=== PATIENT | male | born 1940 | race Caucasian/White ===

== ENCOUNTER 2021-02-06 17:25 | Inpatient (IN) | payer MEDICARE, OTHER ==
[~2021-02-06] VITALS: Ht 177.8 cm; Wt 84.9 kg
[2021-02-06 19:14] LABS: Basophils # (auto) 0 10 ^3/uL (0-0.2); Basophils % (auto) 0.4 % (0.0-2.0); Eosinophils # (auto) 0.1 10 ^3/uL (0-0.8); Eosinophils % (auto) 1.8 % (0.0-7.0); Hematocrit 38.2 % (41.0-53.0); Hemoglobin 12.9 g/dL (13.5-17.5); Lymphocytes # (auto) 2.6 10 ^3/uL (0.4-5.4); Lymphocytes % (auto) 39.4 % (10.0-50.0); Mean Corpuscular Hemoglobin 31.9 pg (28.0-32.0); Mean Corpuscular Hgb Conc. 33.8 g/dL (32.0-36.0); Mean Corpuscular Volume 94.5 fL (80.0-100.0); Monocytes # (auto) 0.8 10 ^3/uL (0-1.3); Monocytes % (auto) 12.4 % (0.0-12.0); Neutrophils # (auto) 3.1 10 ^3/uL (1.6-8.6); Red Blood Cells 4.04 10^6/uL (4.5-5.90); Red Cell Distribution Width 15.1 % (11.8-14.3); White Blood Cell 6.7 10^3/uL (4.4-10.8)
[2021-02-06 19:26] LABS: Albumin 3.7 g/dL (3.4-5.0); Anion Gap 5 (5-15); Blood Urea Nitrogen 40 mg/dL (7-18); Calcium 8.6 mg/dL (8.5-10.1); Carbon Dioxide 30 mmol/L (21-32); Chloride 104 mmol/L (98-107); Glucose 158 mg/dL (74-106); Potassium 4.6 mmol/L (3.5-5.1); Sodium 139 mmol/L (136-145)
[2021-02-06 19:32] LABS: Alanine Aminotransferase 50 U/L (16-61); Alkaline Phosphatase 145 U/L (45-117); Aspartate Aminotransferase 33 U/L (15-37); BUN/Creatinine Ratio 22.1; Bilirubin, Total 0.3 mg/dL (0.2-1.0); GFR African American 47 mL/min; GFR Non-African American 39 mL/min; Total Protein 7.8 g/dL (6.4-8.2)
[2021-02-07] MEDS ORDERED: ONDANSETRON HCL 4 MG/2 ML VIAL IV PRN (01:15)
[2021-02-07] MEDS ORDERED: NITROGLYCERIN 0.4 MG SL TAB SL PRN (01:15)
[2021-02-07] MEDS ORDERED: cloNIDine HCL 0.1 MG TAB PO PRN (01:15)
[2021-02-07] MEDS ORDERED: ACETAMINOPHEN 325 MG TAB PO PRN (01:15)
[2021-02-07] MEDS ORDERED: MORPHINE SULFATE INJECTION 2 MG/ML SYRG IV PRN (01:15)
[2021-02-07] MEDS: GABAPENTIN 300 MG CAP PO SCH ×2 (07:02→21:47)
[2021-02-07] MEDS ORDERED: METH4PAK3 PO (09:49)
[2021-02-07] MEDS: ASPirin 81 mg TAB PO SCH (10:14)
[2021-02-07] MEDS: amLODIPine BESYLATE 5 MG TAB PO SCH (10:15)
[2021-02-07] MEDS: PANTOPRAZOLE 40 MG TAB PO SCH (10:16)
[2021-02-07] MEDS ORDERED: DEXTROSE (50%) 50ML SYRG IV PRN (10:45)
[2021-02-07] MEDS: ACCU-CHEK COMFORT CURVE STRIP VI SCH ×3 (11:29→21:48)
[2021-02-07] MEDS: InsuLIN REG 1unit/0.01ml Soln (100units/ml) SC SCH ×3 (11:29→22:20)
[2021-02-07 17:00] VITALS: BP 121/69
[2021-02-07] MEDS ORDERED: DULO60CA PO (19:19)
[2021-02-07] MEDS ORDERED: PANT1INJ3 PO (19:19)
[2021-02-07] MEDS ORDERED: ATOR80TA PO (19:19)
[2021-02-07] MEDS ORDERED: PRIM50TA5 GT (19:19)
[2021-02-07] MEDS ORDERED: ASPI-543 PO (19:19)
[2021-02-07] MEDS ORDERED: LISI-275 PO (19:19)
[2021-02-07] MEDS ORDERED: BACL10TA PO (19:19)
[2021-02-07] MEDS ORDERED: TAMS1CAP25 PO (19:19)
[2021-02-07] MEDS ORDERED: FURO40TA4 PO (19:19)
[2021-02-07] MEDS ORDERED: CLOP75TA70 PO (19:19)
[2021-02-07] MEDS ORDERED: METO25TA93 PO (19:19)
[2021-02-07] MEDS ORDERED: FINA5TAB4 PO (19:19)
[2021-02-07] MEDS ORDERED: LEVEMIR SC (19:19)
[2021-02-07] MEDS ORDERED: GABA300C10 PO (19:19)
[2021-02-07 21:30] VITALS: BP 148/80
[2021-02-07] MEDS: ATORVASTATIN 20 MG TAB PO SCH (21:48)
[2021-02-07] MEDS ORDERED: ATORVASTATIN 20 MG TAB PO SCH (22:00)
[2021-02-08 05:27] LABS: Basophils # (auto) 0 10 ^3/uL (0-0.2); Basophils % (auto) 0.3 % (0.0-2.0); Eosinophils # (auto) 0.2 10 ^3/uL (0-0.8); Eosinophils % (auto) 2.2 % (0.0-7.0); Hematocrit 37.6 % (41.0-53.0); Hemoglobin 12.7 g/dL (13.5-17.5); Lymphocytes # (auto) 3.3 10 ^3/uL (0.4-5.4); Lymphocytes % (auto) 41.3 % (10.0-50.0); Mean Corpuscular Hemoglobin 31.9 pg (28.0-32.0); Mean Corpuscular Hgb Conc. 33.7 g/dL (32.0-36.0); Mean Corpuscular Volume 94.8 fL (80.0-100.0); Monocytes # (auto) 0.9 10 ^3/uL (0-1.3); Monocytes % (auto) 11.2 % (0.0-12.0); Neutrophils # (auto) 3.6 10 ^3/uL (1.6-8.6); Nucleated Red Blood Cells % 0.2 %; Red Blood Cells 3.96 10^6/uL (4.5-5.90); Red Cell Distribution Width 15.2 % (11.8-14.3); White Blood Cell 7.9 10^3/uL (4.4-10.8)
[2021-02-08 05:30] VITALS: BP 130/69
[2021-02-08 05:49] LABS: Potassium 4.6 mmol/L (3.5-5.1)
[2021-02-08 06:01] LABS: Albumin 3.3 g/dL (3.4-5.0); BUN/Creatinine Ratio 17.2; Bilirubin, Total 0.3 mg/dL (0.2-1.0); Calcium 8.6 mg/dL (8.5-10.1); Total Protein 7.4 g/dL (6.4-8.2)
[2021-02-08] MEDS: ACCU-CHEK COMFORT CURVE STRIP VI SCH ×4 (06:39→21:32)
[2021-02-08] MEDS: InsuLIN REG 1unit/0.01ml Soln (100units/ml) SC SCH ×4 (06:39→21:52)
[2021-02-08 09:00] VITALS: BP 166/68
[2021-02-08] MEDS: amLODIPine BESYLATE 5 MG TAB PO SCH (10:06)
[2021-02-08] MEDS: ASPirin 81 mg TAB PO SCH (10:06)
[2021-02-08] MEDS: PANTOPRAZOLE 40 MG TAB PO SCH (10:06)
[2021-02-08] MEDS: GABAPENTIN 300 MG CAP PO SCH ×2 (10:06→21:32)
[2021-02-08 17:00] VITALS: BP 129/74
[2021-02-08] MEDS: ATORVASTATIN 20 MG TAB PO SCH (21:32)
[2021-02-08 22:00] VITALS: BP 123/72
[2021-02-09 05:00] VITALS: BP 122/77
[2021-02-09] MEDS: ACCU-CHEK COMFORT CURVE STRIP VI SCH ×2 (06:21→11:37)
[2021-02-09] MEDS: InsuLIN REG 1unit/0.01ml Soln (100units/ml) SC SCH ×2 (06:21→11:53)
[2021-02-09 09:00] VITALS: BP 125/79
[2021-02-09] MEDS: amLODIPine BESYLATE 5 MG TAB PO SCH (10:13)
[2021-02-09] MEDS: PANTOPRAZOLE 40 MG TAB PO SCH (10:13)
[2021-02-09] MEDS: ASPirin 81 mg TAB PO SCH (10:13)
[2021-02-09] MEDS: GABAPENTIN 300 MG CAP PO SCH (10:13)
[2021-02-09 12:19] VITALS: BP 127/79
== END 2021-02-09 13:20 | disposition home or self-care (01) | DRG 303 ==
LOC: ER 17:25 → TELE 02-07 01:09 → TELE-WESTW 02-07 14:48
PROVIDERS: ADMIT Nurse Practitioner; ATTEND Family Medicine
DX: I25.110 Atherosclerotic heart disease of native coronary artery with unstable angina pectoris (principal); N17.9 Acute kidney failure, unspecified; D63.8 Anemia in other chronic diseases classified elsewhere; E11.22 Type 2 diabetes mellitus with diabetic chronic kidney disease; E11.40 Type 2 diabetes mellitus with diabetic neuropathy, unspecified; E78.5 Hyperlipidemia, unspecified; K21.9 Gastro-esophageal reflux disease without esophagitis; I12.9 Hypertensive chronic kidney disease with stage 1 through stage 4 chronic kidney disease, or unspecified chronic kidney disease; Z20.822 Contact with and (suspected) exposure to COVID-19; I44.0 Atrioventricular block, first degree; N18.30 Chronic kidney disease, stage 3 unspecified; Z79.4 Long term (current) use of insulin; Z95.1 Presence of aortocoronary bypass graft; I25.2 Old myocardial infarction; Z86.16 Personal history of COVID-19; Z87.01 Personal history of pneumonia (recurrent); Z91.041 Radiographic dye allergy status; Z88.0 Allergy status to penicillin; Z91.018 Allergy to other foods; Z79.82 Long term (current) use of aspirin
CPT/HCPCS: 36415; 71045; 80053; 82962; 83036; 83735; 83880; 84484; 85025; 87426; 93005; 93306; G0378; J1815